=== PATIENT | female | born 1965 | race Caucasian/White ===

== ENCOUNTER 2024-04-10 15:46 | Outpatient (CLI) | payer BC, SELFPAY ==
--- NOTE | ~2024-04-10 | XR_ITS ---
XR elbow RT min 3V Ordering provider: Lien Kelley, PAC History: . M25.521 - Pain in right elbow X 5 days, no trauma . Comparison: None. FINDINGS: BONES: No acute fracture or dislocation. JOINT SPACES: Normal. SOFT TISSUES: Unremarkable. No definite joint effusion. IMPRESSION: No acute osseous abnormality of the right elbow. Reviewed, dictated and finalized at location A.
== END 2024-04-10 15:47 | disposition home or self-care (01) ==
PROVIDERS: PCP Family Medicine; Visit Provider Physician Assistant Medical
DX: M25.521 Pain in right elbow (principal)
CPT/HCPCS: 73080